=== PATIENT | female | born 1960 | race Two or more races ===

== ENCOUNTER → 2017-05-17 | Outpatient (CLI) | payer OTHER | LOC: CFH 09:28 | PROVIDERS: ATTEND Internal Medicine | DX: Z12.31 Encounter for screening mammogram for malignant neoplasm of breast (principal) | CPT/HCPCS: 77067 ==

== ENCOUNTER → 2017-09-08 | Outpatient (CLI) | payer OTHER ==
[~2017-09-08] MED LIST: OMNIPAQUE 350 MG/ML, 100ML BOTTLE ONE
== END ==
LOC: CFH 08:01 → EDSTATUS 09:30
PROVIDERS: ATTEND Nurse Practitioner Primary Care
DX: N20.0 Calculus of kidney (principal); N13.30 Unspecified hydronephrosis; Z87.440 Personal history of urinary (tract) infections
CPT/HCPCS: 74177; Q9967